=== PATIENT | female | born 1985 | race Caucasian/White ===

== ENCOUNTER 2023-10-11 09:08 | Outpatient (CLI) | payer BC ==
[2023-10-11] MEDS ORDERED: Magnevist 469MG/ML 20 ML VIAL ONE (10:38)
== END 2023-10-11 09:09 | disposition home or self-care (01) ==
LOC: CSHSPEC 09:08
PROVIDERS: ATTEND Student in an Organized Health Care Education/Training Program
DX: K76.0 Fatty (change of) liver, not elsewhere classified (principal); D18.03 Hemangioma of intra-abdominal structures; K76.9 Liver disease, unspecified
CPT/HCPCS: 74183; A9579